=== PATIENT | male | born 1980 | race Caucasian/White ===

== ENCOUNTER 2017-03-22 16:45 | Emergency (ER) | payer MEDICAID ==
[2017-03-22 17:19] VITALS: BP 138/95
[2017-03-22] MEDS ORDERED: methylPREDNISolone Sodium Succinate 125 MG/2 ML SDV IVPUSH ONE (17:27)
[2017-03-22 18:03] LABS: CHLORIDE,CL 99 mmol/L (101-111); SODIUM,NA 136 mmol/L (135-145)
[2017-03-22] MEDS ORDERED: Ketorolac 30 MG/ML SDV IVPUSH ONE (18:35)
--- NOTE | 2017-03-22 18:37 | EDM.PDOC ---
ED HPI GENERAL MEDICAL PROBLEM - General Chief Complaint: Respiratory Problem Stated Complaint: [id number] SOB BREAKING OUT OF ANTIBIOTIC Time Seen by Provider: 03/22/17 18:20 Source of Information: Reports: Patient History Limitations: Reports: No Limitations - History of Present Illness INITIAL COMMENTS - FREE TEXT/NARRATIVE: Patient presents to the ER with complaints of shortness of breath and rash. He reports that he was started on Bactrim for what was believed to be staph infection to his left upper extremity. He reports that he has taken two doses of the antibiotic. He originally woke up this morning around 0500 with a headache and rash to his chest. He took some Tylenol and went back to bed. The remainder of the day he was working with his father and thought he was feeling better. Around 1600 he reports that the rash had worsened and he began feeling short of breath and somewhat disoriented, prompting his ER visit. He felt disoriented because he was "looking for a water bottle that was in his hand already." He denies any tongue swelling. He complains of a throbbing headache upon presentation to the ER, has experienced relief throughout the day with Tylenol. Onset: Today Onset Date: 03/22/17 Onset Time: 05:00 Location: Reports: Chest (hives to anterior and posterior chest, feels short of breath) Improves with: Reports: Medication Associated Symptoms: Reports: Headaches Treatments NURSE OFFICE: Reports: Acetaminophen Chest Pain Score (Numeric/FACES): 5 - Related Data Allergies Allergy/AdvReac Type Severity Reaction Status Date / Time amoxicillin Allergy Hives Verified 03/22/17 17:28 erythromycin base Allergy Hives Verified 03/22/17 17:28 Penicillins Allergy Hives Verified 03/22/17 17:28 Sulfa (Sulfonamide Allergy Hives Verified 03/22/17 17:12 Antibiotics) Home Meds: Home Meds Dicyclomine [Bentyl] 10 mg PO BID 03/22/17 [History] Escitalopram [Lexapro] 20 mg PO DAILY 03/22/17 [History] Lisinopril [Zestril] 5 mg PO DAILY 03/22/17 [History] QUEtiapine Fumarate [Seroquel Xr] 50 mg PO DAILY 03/22/17 [History] atoMOXetine HCl [Strattera] 60 mg PO DAILY 03/22/17 [History] buPROPion [Wellbutrin XL] 300 mg PO DAILY 03/22/17 [History] busPIRone [Buspar] 10 mg PO BID 03/22/17 [History] guanFACINE 10 mg PO DAILY 03/22/17 [History] Past Medical History HEENT History: Reports: Impaired Vision Cardiovascular History: Reports: Hypertension Gastrointestinal History: Reports: Other (See Below) Other Gastrointestinal History: ulcerative colitis Psychiatric History: Reports: ADHD, Anxiety, Bipolar Social & Family History - Family History Family Medical History: Noncontributory - Tobacco Use Smoking Status *Q: Never Smoker - Caffeine Use Caffeine Use: Reports: Coffee - Recreational Drug Use Recreational Drug Use: No ED ROS GENERAL - Review of Systems Review Of Systems: ROS reveals no pertinent complaints other than HPI. ED EXAM, GENERAL - Physical Exam Exam: See Below Exam Limited By: No Limitations General Appearance: Alert, WD/WN, No Apparent Distress Eye Exam: Bilateral Eye: Normal Fundi, Normal Inspection, PERRL Nose: Normal Inspection, Normal Mucosa, No Blood Throat/Mouth: Normal Inspection, Normal Lips, Normal Teeth, Normal Gums, Normal Oropharynx, Normal Voice, No Airway Compromise Head: Atraumatic, Normocephalic Neck: Normal Inspection, Supple, Non-Tender, Full Range of Motion Respiratory/Chest: No Respiratory Distress, Lungs Clear, Normal Breath Sounds, No Accessory Muscle Use, Chest Non-Tender Cardiovascular: Normal Peripheral Pulses, Regular Rate, Rhythm, No Edema, No Gallop, No JVD, No Murmur, No Rub GI/Abdominal: Normal Bowel Sounds, Soft, Non-Tender, No Organomegaly, No Distention, No Abnormal Bruit, No Mass (Male) Exam: Deferred Rectal (Males) Exam: Deferred Back Exam: Normal Inspection, Full Range of Motion, NT Extremities: Normal Inspection, Normal Range of Motion, Non-Tender, Normal Capillary Refill, No Pedal Edema Neurological: Alert, Oriented, CN II-XII Intact, Normal Cognition, Normal Gait, Normal Reflexes, No Motor/Sensory Deficits Psychiatric: Normal Affect, Normal Mood Skin Exam: Rash (hives and erythema to upper anterior and posterior chest) Lymphatic: No Adenopathy Course - Vital Signs Last Recorded V/S: Last Vital Signs Temp 37.3 C 03/22/17 17:17 Pulse 100 03/22/17 17:17 Resp 20 03/22/17 17:17 BP 138/95 H 03/22/17 17:17 Pulse Ox 100 03/22/17 17:17 - Orders/Labs/Meds Labs: Laboratory Tests 03/22/17 03/22/17 Range/Units 17:38 17:38 WBC 14.0 H (5.0-10.0) 10^3/uL RBC 4.70 (4.6-6.2) 10^6/uL Hgb 14.9 (14.0-18.0) g/dL Hct 44.0 (40.0-54.0) % MCV 93.6 (80-100) fL MCH 31.7 (27.0-34.0) pg MCHC 33.9 (33.0-35.0) g/dL Plt Count 199 (150-450) 10^3/uL Neut % (Auto) 90.0 H (42.2-75.2) % Lymph % (Auto) 2.4 L (20.5-50.1) % [place] % (Auto) 6.0 (2-8) % Eos % (Auto) 1.5 (1.0-3.0) % Baso % (Auto) 0.1 (0.0-1.0) % Sodium 136 (135-145) mmol/L Potassium 4.6 (3.6-5.0) mmol/L Chloride 99 L (101-111) mmol/L Carbon Dioxide 27.0 (21.0-31.0) mmol/L Anion Gap 14.6 BUN 17 (7-18) mg/dL Creatinine 1.0 (0.6-1.3) mg/dL Est Cr Clr Drug Dosing 112.09 mL/min Estimated GFR (MDRD) > 60 BUN/Creatinine Ratio 17.00 Glucose 97 (74-105) mg/dL Calcium 9.0 (8.4-10.2) mg/dl Total Bilirubin 0.6 (0.2-1.0) mg/dL AST 41 (10-42) IU/L ALT 26 (10-60) IU/L Alkaline Phosphatase 63 (42-121) IU/L Total Protein 6.6 L (6.7-8.2) g/dl Albumin 4.0 (3.2-5.5) g/dl Globulin 2.6 Albumin/Globulin Ratio 1.54 Meds: Medications Discontinued Medications Generic Name Dose Route Start Last Admin Trade Name Haylie PRN Reason Stop Dose Admin Methylprednisolone Sodium Succinate 125 mg 03/22/17 17:27 03/22/17 17:33 Solu-Medrol IVPUSH 03/22/17 17:28 125 mg ONETIME ONE Administration Departure - Departure Time of Disposition: 19:01 Disposition: Home, Self-Care 01 Condition: Fair Clinical Impression: Drug-induced hypersensitivity reaction Qualifiers: Encounter type: initial encounter Qualified Code(s): T78.40XA - Allergy, unspecified, initial encounter - Discharge Information Instructions: Shortness of Breath, [id number] Care Plan Goals: Labs discussed with patient and his parents. Solumedrol 125 mg IV administered during ER visit. 30 mg IV Toradol administered with headache relief. At time of discharge, patient reports breathing is much easier and he is no longer short of breath, nor does he have a headache. Instructed patient to stop taking Bactrim and follow up with his PCP tomorrow to further address cystic lesion to left upper extremity and leukocytosis. Instructed patient to take Benadryl 25 mg Q 6 hrs PRN rash and push fluids.
== END 2017-03-22 19:08 | disposition home or self-care (01) ==
LOC: DL.ED 16:45
DX: L50.0 Allergic urticaria (principal); T37.0X5A Adverse effect of sulfonamides, initial encounter; H54.7 Unspecified visual loss; I10 Essential (primary) hypertension; F41.9 Anxiety disorder, unspecified; F31.9 Bipolar disorder, unspecified; Z88.1 Allergy status to other antibiotic agents; Z88.2 Allergy status to sulfonamides; Z79.899 Other long term (current) drug therapy
CPT/HCPCS: 36415; 80053; 85025; 96374; 96375; 99284; J1885; J2930

== ENCOUNTER 2017-05-25 22:35 | Emergency (ER) | payer MEDICAID ==
[2017-05-25] MEDS ORDERED: Clindamycin HCl 150 MG Cap PO ONE (22:36)
[2017-05-25 22:43] VITALS: BP 150/91
[2017-05-25] MEDS ORDERED: Lidocaine 1% 30 ML SDV INJECT ONE (22:57)
--- NOTE | 2017-05-25 22:57 | EDM.PDOC ---
ED HPI GENERAL MEDICAL PROBLEM - General Chief Complaint: Skin Complaint Stated Complaint: HAND [id number] Time Seen by Provider: 05/25/17 22:54 Source of Information: Reports: Patient History Limitations: Reports: No Limitations - History of Present Illness INITIAL COMMENTS - FREE TEXT/NARRATIVE: C/o pain and redness to left arm and wrist. Patient reports he had "sweat pimple ton left wrist few days ago that he poked with needle today low grade temp and pus coming from wrist area. Also bumped left anticubital area while at word with board. , yellow scab to area that he also tried poking with needle. Hx MRSA in past. Duration: Day(s): Left Hand Pain Score (Numeric/FACES): 9 - Related Data Allergies Allergy/AdvReac Type Severity Reaction Status Date / Time amoxicillin Allergy Hives Verified 05/25/17 22:44 erythromycin base Allergy Hives Verified 05/25/17 22:44 Penicillins Allergy Hives Verified 05/25/17 22:44 Sulfa (Sulfonamide Allergy Hives Verified 05/25/17 22:44 Antibiotics) Home Meds: Home Meds Dicyclomine [Bentyl] 10 mg PO BID 03/22/17 [History] Escitalopram [Lexapro] 20 mg PO DAILY 03/22/17 [History] Lisinopril [Zestril] 5 mg PO DAILY 03/22/17 [History] QUEtiapine Fumarate [Seroquel Xr] 50 mg PO DAILY 03/22/17 [History] atoMOXetine HCl [Strattera] 60 mg PO DAILY 03/22/17 [History] buPROPion [Wellbutrin XL] 300 mg PO DAILY 03/22/17 [History] busPIRone [Buspar] 10 mg PO BID 03/22/17 [History] guanFACINE 10 mg PO DAILY 03/22/17 [History] Mesalamine [Mesalamine] 1 tab PO DAILY 05/25/17 [History] Past Medical History HEENT History: Reports: Impaired Vision Cardiovascular History: Reports: Hypertension Gastrointestinal History: Reports: Other (See Below) Other Gastrointestinal History: ulcerative colitis Psychiatric History: Reports: ADHD, Anxiety, Bipolar Social & Family History - Family History Family Medical History: Noncontributory - Tobacco Use Smoking Status *Q: Never Smoker - Caffeine Use Caffeine Use: Reports: Coffee - Recreational Drug Use Recreational Drug Use: No ED ROS GENERAL - Review of Systems Review Of Systems: See Below Constitutional: Reports: Fever HEENT: Reports: No Symptoms Respiratory: Reports: No Symptoms Cardiovascular: Reports: No Symptoms GI/Abdominal: Reports: No Symptoms Musculoskeletal: Reports: Arm Pain Skin: Reports: Erythema, Wound Neurological: Reports: No Symptoms Psychiatric: Reports: Anxiety ED EXAM, SKIN/RASH Exam: See Below Exam Limited By: No Limitations General Appearance: Alert, Anxious, Mild Distress Eye Exam: Bilateral Eye: EOMI Ears: Normal External Exam Nose: Normal Inspection Throat/Mouth: Normal Inspection, Normal Voice Head: Atraumatic, Normocephalic Respiratory/Chest: No Respiratory Distress Cardiovascular: Normal Peripheral Pulses, Regular Rate, Rhythm Extremities: Increased Warmth, Redness. No: Normal Inspection Neurological: Alert, Oriented, Inattentive Psychiatric: Anxious Skin: Warm, Erythema, Increased Warmth (left wrist) Location, Skin: Upper Extremity, Left (5x4cm red raised area with central blistering with scant yellow drainage, erythema streaking inner forearm to 2nd lesion medial anticubital space 3 cm circular firm area with 5mm central yellow brown crust) Associated features: Warmth, Tenderness, Swelling, Induration, Inflammation, Weeping ED SKIN PROCEDURES - I&D Skin Prep: Chlorhexidine (Hibiciens), Providone-Iodine (Betadine) Local Anesthesia: Lidocaine: 1% Plain Local Anesthetic Volume: 2cc Area Incised With: 15 Blade Drainage: Purulent (small amount left wrist,) Probed to Break Up Loculations: No Sterile Dressing: Other (telfa, kerlix) Complications: No Course - Vital Signs Last Recorded V/S: Last Vital Signs Temp 99.0 F 05/25/17 22:42 Pulse 113 H 05/25/17 22:42 Resp 18 05/25/17 22:42 BP 150/91 H 05/25/17 22:42 Pulse Ox 99 05/25/17 22:42 - Orders/Labs/Meds Orders: Active Orders 24 hr Category Date Time Status CULTURE BLOOD [BC] Stat Lab 05/25/17 22:56 Received CULTURE WOUND [RM] Stat Lab 05/25/17 22:48 Received Labs: Laboratory Tests 05/25/17 05/25/17 05/25/17 Range/Units 22:56 22:56 22:56 WBC 12.7 H (5.0-10.0) 10^3/uL RBC 4.21 L (4.6-6.2) 10^6/uL Hgb 13.8 L (14.0-18.0) g/dL Hct 39.8 L (40.0-54.0) % MCV 94.5 (80-100) fL MCH 32.8 (27.0-34.0) pg MCHC 34.7 (33.0-35.0) g/dL Plt Count 295 D (150-450) 10^3/uL Neut % (Auto) 78.6 H (42.2-75.2) % Lymph % (Auto) 11.1 L (20.5-50.1) % [place] % (Auto) 9.4 H (2-8) % Eos % (Auto) 0.7 L (1.0-3.0) % Baso % (Auto) 0.2 (0.0-1.0) % Sodium 137 (135-145) mmol/L Potassium 3.6 (3.6-5.0) mmol/L Chloride 102 (101-111) mmol/L Carbon Dioxide 26.0 (21.0-31.0) mmol/L Anion Gap 12.6 BUN 15 (7-18) mg/dL Creatinine 1.0 (0.6-1.3) mg/dL Est Cr Clr Drug Dosing 108.77 mL/min Estimated GFR (MDRD) > 60 BUN/Creatinine Ratio 15.00 Glucose 116 H (74-105) mg/dL Lactic Acid 0.7 (0.5-2.2) mmol/L Calcium 9.1 (8.4-10.2) mg/dl Total Bilirubin 0.6 (0.2-1.0) mg/dL AST 40 (10-42) IU/L ALT 32 (10-60) IU/L Alkaline Phosphatase 64 (42-121) IU/L Total Protein 6.9 (6.7-8.2) g/dl Albumin 3.9 (3.2-5.5) g/dl Globulin 3.0 Albumin/Globulin Ratio 1.30 Meds: Medications Discontinued Medications Generic Name Dose Route Start Last Admin Trade Name Freq PRN Reason Stop Dose Admin Bacitracin 1 dose 05/25/17 23:44 05/26/17 00:09 Bacitracin Oint 1 Gm TOP 05/25/17 23:45 1 dose ONETIME ONE Administration Clindamycin HCl Confirm 05/26/17 00:47 05/26/17 00:58 Cleocin Administered 05/26/17 00:48 Not Given Dose 1,200 mg .ROUTE .STK-MED ONE Diphenhydramine HCl 25 mg 05/25/17 23:00 05/25/17 23:24 Benadryl PO 05/25/17 23:01 25 mg ONETIME ONE Administration Vancomycin HCl 1 gm/ Sodium 250 mls @ 167 mls/hr 05/25/17 22:59 05/25/17 23: 24 Chloride IV 05/26/17 00:28 167 mls/hr ONETIME ONE Administration Lidocaine HCl 30 ml 05/25/17 22:57 05/25/17 23:25 Xylocaine-Mpf 1% INJECT 05/25/17 22:58 30 ml ONETIME ONE Administration Departure - Departure Time of Disposition: 01:00 Disposition: Home, Self-Care 01 Condition: Fair Clinical Impression: Cellulitis Qualifiers: Site of cellulitis: extremity Site of cellulitis of extremity: upper extremity Laterality: left Qualified Code(s): L03.114 - Cellulitis of left upper limb - Discharge Information Instructions: Cellulitis, Adult Referrals: Katherine Welsh PA-C [Primary Care Provider] - Forms: ED Department Discharge Additional Instructions: warm pack to left wrist to forearm 4 times daily 15 minutes Recheck in clinic on Tuesday, sooner if symptoms worsen, fever, chills body aches Clindaymycin 300mg 4 times daily for one week tylenol or ibuprofen for discomfort Keep area covered, change dressing at least twice daily - My Orders Last 24 Hours: My Active Orders 05/25/17 22:48 CULTURE WOUND [RM] Stat 05/25/17 22:56 CULTURE BLOOD [BC] Stat - Assessment/Plan Last 24 Hours: My Active Orders 05/25/17 22:48 CULTURE WOUND [RM] Stat 05/25/17 22:56 CULTURE BLOOD [BC] Stat
[2017-05-25] MEDS ORDERED: diphenhydrAMINE 25 MG Tab PO ONE (23:00)
[2017-05-25 23:23] LABS: CHLORIDE,CL 102 mmol/L (101-111); SODIUM,NA 137 mmol/L (135-145)
[2017-05-25] MEDS ORDERED: Bacitracin Oint 1 GM U/D Packet TOP ONE (23:44)
[2017-05-26] MEDS ORDERED: Clindamycin HCl 150 MG Cap ONE (00:47)
== END 2017-05-26 01:03 | disposition home or self-care (01) ==
LOC: DL.ED 22:35
DX: L03.114 Cellulitis of left upper limb (principal); I10 Essential (primary) hypertension; F31.9 Bipolar disorder, unspecified; Z79.899 Other long term (current) drug therapy; Z88.0 Allergy status to penicillin; Z88.1 Allergy status to other antibiotic agents; Z88.2 Allergy status to sulfonamides
CPT/HCPCS: 10060; 36415; 80053; 83605; 85025; 87040; 87070; 87077; 87186; 96365; 96366; 99283; A9270; J3370; J7050

== ENCOUNTER 2017-08-21 21:24 | Emergency (ER) | payer BC, MEDICAID ==
[2017-08-21 21:37] VITALS: BP 147/103
[2017-08-21] MEDS ORDERED: Ibuprofen 600 MG Tab PO ONE (21:50)
--- NOTE | 2017-08-21 22:19 | EDM.PDOC ---
ED HPI GENERAL MEDICAL PROBLEM - General Chief Complaint: Skin Complaint Stated Complaint: INFECTION IN FOOT [id number] Time Seen by Provider: 08/21/17 22:09 Source of Information: Reports: Patient History Limitations: Reports: No Limitations - History of Present Illness INITIAL COMMENTS - FREE TEXT/NARRATIVE: ED with c/o sore on bottom of right foot. Has hx of MRSA and has had cellulitis in past . No fevers Patient admits to taking insulin syringe and poking at it and got some drainage. Right Feet Pain Score (Numeric/FACES): 10 - Related Data Allergies Allergy/AdvReac Type Severity Reaction Status Date / Time amoxicillin Allergy Hives Verified 08/21/17 21:30 erythromycin base Allergy Hives Verified 08/21/17 21:30 Penicillins Allergy Hives Verified 08/21/17 21:30 Sulfa (Sulfonamide Allergy Hives Verified 08/21/17 21:30 Antibiotics) Home Meds: Home Meds Dicyclomine [Bentyl] 10 mg PO BID 03/22/17 [History] Escitalopram [Lexapro] 20 mg PO DAILY 03/22/17 [History] Lisinopril [Zestril] 5 mg PO DAILY 03/22/17 [History] QUEtiapine Fumarate [Seroquel Xr] 50 mg PO DAILY 03/22/17 [History] atoMOXetine HCl [Strattera] 60 mg PO DAILY 03/22/17 [History] buPROPion [Wellbutrin XL] 300 mg PO DAILY 03/22/17 [History] busPIRone [Buspar] 10 mg PO BID 03/22/17 [History] guanFACINE 10 mg PO DAILY 03/22/17 [History] Mesalamine [Mesalamine] 1 tab PO DAILY 05/25/17 [History] Past Medical History HEENT History: Reports: Impaired Vision Cardiovascular History: Reports: Hypertension Gastrointestinal History: Reports: Other (See Below) Other Gastrointestinal History: ulcerative colitis Psychiatric History: Reports: ADHD, Anxiety, Bipolar Dermatologic History: Reports: Cellulitis - Infectious Disease History Infectious Disease History: Reports: MRSA - Past Surgical History GI Surgical History: Reports: Colonoscopy Social & Family History - Family History Family Medical History: Noncontributory - Tobacco Use Smoking Status *Q: Current Every Day Smoker Years of Tobacco use: 6 Packs/Tins Daily: 0.2 Used Tobacco, but Quit: No Second Hand Smoke Exposure: Yes - Caffeine Use Caffeine Use: Reports: None - Recreational Drug Use Recreational Drug Use: No ED ROS GENERAL - Review of Systems Review Of Systems: ROS reveals no pertinent complaints other than HPI. ED EXAM, SKIN/RASH Exam: See Below Exam Limited By: No Limitations General Appearance: Alert, No Apparent Distress, Anxious Eye Exam: Bilateral Eye: EOMI Nose: Normal Inspection Throat/Mouth: Normal Inspection Neck: Full Range of Motion Cardiovascular: Normal Peripheral Pulses Extremities: No: Pedal Edema Neurological: Alert, Oriented, Normal Cognition Psychiatric: Anxious Skin: Warm, Dry, Wound/Incision (dime size red area with central raised , calloused, punctate center, scant thick white drainage mid plantar fore foot right) ED SKIN PROCEDURES - I&D Site: right forefoot mid plantar surface Skin Prep: Providone-Iodine (Betadine) Area Incised With: 11 Blade Drainage: Purulent (scant) Sterile Dressinx4(s) Course - Vital Signs Last Recorded V/S: Last Vital Signs Temp 98.0 F 08/21/17 21:35 Pulse 109 H 08/21/17 21:35 Resp 16 08/21/17 21:35 BP 147/103 H 08/21/17 21:35 Pulse Ox 100 08/21/17 21:35 - Orders/Labs/Meds Meds: Medications Discontinued Medications Generic Name Dose Route Start Last Admin Trade Name Haylie PRN Reason Stop Dose Admin Ibuprofen 600 mg 08/21/17 21:50 08/21/17 21:55 Motrin PO 08/21/17 21:51 600 mg ONETIME ONE Administration Departure - Departure Time of Disposition: 22:25 Disposition: Home, Self-Care 01 Condition: Good Clinical Impression: Abscess - Discharge Information Instructions: Skin Abscess, [id number] Additional Instructions: Warm soak to foot 3 times daily clinic follow up 2 days, sooner if redness of foot minimal weight bearing dress with antibiotic ointment gauze and radha doxycyclin 100mg twice daily for 10 days
[2017-08-21] MEDS ORDERED: Doxycycline 100 MG Cap PO ONE (22:28)
== END 2017-08-21 22:35 | disposition home or self-care (01) ==
LOC: DL.ED 21:24
DX: L02.611 Cutaneous abscess of right foot (principal); I10 Essential (primary) hypertension; F17.210 Nicotine dependence, cigarettes, uncomplicated; Z88.1 Allergy status to other antibiotic agents; Z88.2 Allergy status to sulfonamides; Z88.0 Allergy status to penicillin; Z79.899 Other long term (current) drug therapy
CPT/HCPCS: 10060; 87070; 87077; 87186; 99283; A9270

== ENCOUNTER 2017-10-27 23:35 | Emergency (ER) | payer BC, MEDICAID ==
[2017-10-27] MEDS ORDERED: Ondansetron 4 MG Tab.DIS PO ONE (23:36)
[2017-10-28 00:04] VITALS: BP 125/79
--- NOTE | 2017-10-28 00:46 | EDM.PDOC ---
ED HPI GENERAL MEDICAL PROBLEM - General Chief Complaint: Gastrointestinal Problem Stated Complaint: CHEST PRESSURE, PUKING AND YELLOW [id number] Time Seen by Provider: 10/28/17 00:30 Source of Information: Reports: Patient History Limitations: Reports: No Limitations - History of Present Illness INITIAL COMMENTS - FREE TEXT/NARRATIVE: ED with family c/o nausea and vomiting. Has felt tired past month, stomach discomfort kind of burning epigastric, briefly resolves wit h food then worse. Vomiting yellow liquid 7 times with retching. Large amount of food consumed per report including spicy tajik. Hx of ulcerative colitis. No report of bloody emesis or blood in stool. Bilateral Chest Pain Score (Numeric/FACES): 6 - Related Data Allergies Allergy/AdvReac Type Severity Reaction Status Date / Time amoxicillin Allergy Hives Verified 10/28/17 00:08 erythromycin base Allergy Hives Verified 10/28/17 00:08 Penicillins Allergy Hives Verified 10/28/17 00:08 Sulfa (Sulfonamide Allergy Hives Verified 10/28/17 00:08 Antibiotics) Home Meds: Home Meds Dicyclomine [Bentyl] 10 mg PO BID 03/22/17 [History] Escitalopram [Lexapro] 20 mg PO DAILY 03/22/17 [History] Lisinopril [Zestril] 5 mg PO DAILY 03/22/17 [History] buPROPion [Wellbutrin XL] 300 mg PO DAILY 03/22/17 [History] busPIRone [Buspar] 10 mg PO BID 03/22/17 [History] Mesalamine 1 tab PO DAILY 05/25/17 [History] guanFACINE 2 mg PO DAILY 10/28/17 [History] Past Medical History HEENT History: Reports: Impaired Vision Cardiovascular History: Reports: Hypertension Gastrointestinal History: Reports: Other (See Below) Other Gastrointestinal History: ulcerative colitis Psychiatric History: Reports: ADHD, Anxiety, Bipolar Dermatologic History: Reports: Cellulitis - Infectious Disease History Infectious Disease History: Reports: MRSA - Past Surgical History GI Surgical History: Reports: Colonoscopy Social & Family History - Family History Family Medical History: Noncontributory - Tobacco Use Smoking Status *Q: Current Every Day Smoker Years of Tobacco use: 10 Packs/Tins Daily: 0.5 Used Tobacco, but Quit: No Second Hand Smoke Exposure: Yes - Caffeine Use Caffeine Use: Reports: None - Recreational Drug Use Recreational Drug Use: No ED ROS GENERAL - Review of Systems Review Of Systems: ROS reveals no pertinent complaints other than HPI. ED EXAM, GI/ABD - Physical Exam Exam: See Below Exam Limited By: No Limitations General Appearance: Alert, Anxious, Mild Distress. No: Active Emesis Eyes: Bilateral: EOMI Ears: Normal External Exam Throat/Mouth: Normal Inspection, Normal Lips Head: Atraumatic, Normocephalic Neck: Normal Inspection Respiratory/Chest: No Respiratory Distress, Lungs Clear, Normal Breath Sounds Cardiovascular: Normal Peripheral Pulses, Regular Rate, Rhythm GI/Abdominal Exam: Normal Bowel Sounds, Soft, Non-Tender Back Exam: Normal Inspection, Full Range of Motion Extremities: Normal Inspection, Normal Range of Motion Neurological: Alert, Oriented, CN II-XII Intact, Normal Cognition Psychiatric: Anxious, Flat Affect Skin Exam: Warm, Dry, Intact, Normal Color Course - Vital Signs Last Recorded V/S: Last Vital Signs Temp 99 F 10/28/17 00:00 Pulse 69 10/28/17 00:00 Resp 18 10/28/17 00:00 BP 125/79 10/28/17 00:00 Pulse Ox 99 10/28/17 00:00 - Orders/Labs/Meds Orders: Active Orders 24 hr Category Date Time Status EKG 12 Lead [EKG Documentation Completion] [RC] STAT Care 10/28/17 00:33 Active Labs: Laboratory Tests 10/28/17 10/28/17 Range/Units 00:45 00:45 WBC 7.8 (5.0-10.0) 10^3/uL RBC 4.43 L (4.6-6.2) 10^6/uL Hgb 14.1 (14.0-18.0) g/dL Hct 40.8 (40.0-54.0) % MCV 92.1 (80-100) fL MCH 31.8 (27.0-34.0) pg MCHC 34.6 (33.0-35.0) g/dL Plt Count 236 (150-450) 10^3/uL Neut % (Auto) 63.5 (42.2-75.2) % Lymph % (Auto) 19.4 L (20.5-50.1) % [place] % (Auto) 14.4 H (2-8) % Eos % (Auto) 2.6 (1.0-3.0) % Baso % (Auto) 0.1 (0.0-1.0) % Sodium 134 L (135-145) mmol/L Potassium 3.4 L (3.6-5.0) mmol/L Chloride 101 (101-111) mmol/L Carbon Dioxide 26.0 (21.0-31.0) mmol/L Anion Gap 10.4 BUN 17 (7-18) mg/dL Creatinine 1.0 (0.6-1.3) mg/dL Est Cr Clr Drug Dosing 107.72 mL/min Estimated GFR (MDRD) > 60 BUN/Creatinine Ratio 17.00 Glucose 102 (74-105) mg/dL Calcium 8.9 (8.4-10.2) mg/dl Total Bilirubin 0.4 (0.2-1.0) mg/dL AST 47 H (10-42) IU/L ALT 30 (10-60) IU/L Alkaline Phosphatase 57 (42-121) IU/L Troponin I < 0.02 (0.00-0.02) ng/ml Total Protein 6.4 L (6.7-8.2) g/dl Albumin 3.8 (3.2-5.5) g/dl Globulin 2.6 Albumin/Globulin Ratio 1.46 Amylase 96 (28-100) U/L Lipase 44 (22-51) U/L Meds: Medications Discontinued Medications Generic Name Dose Route Start Last Admin Trade Name Freq PRN Reason Stop Dose Admin Famotidine 20 mg 10/28/17 00:49 10/28/17 00:57 Pepcid IVPUSH 10/28/17 00:50 20 mg ONETIME ONE Administration Sodium Chloride 1,000 mls @ 999 mls/hr 10/28/17 00:55 10/28/17 00:57 Normal Saline IV 10/28/17 01:55 999 mls/hr .BOLUS ONE Administration Ondansetron HCl Confirm 10/28/17 01:57 10/28/17 02:31 Zofran Odt Administered 10/28/17 01:58 Not Given Dose 8 mg .ROUTE .STK-MED ONE Departure - Departure Time of Disposition: 01:51 Disposition: Home, Self-Care 01 Condition: Good Clinical Impression: Peptic gastritis, Vomiting - Discharge Information Instructions: Nausea and Vomiting, Adult, [id number] Referrals: Joaquín Klein, [employer] [facility] [Primary Care Provider] - Forms: ED Department Discharge Additional Instructions: clinic follow up next week bland light diet, small measl more frequenlty, avoid spicy, greasy or caffienated beverages omeprazole 20mg daily on empty stomach zofran ODT 4mg every 6 hours as needed for nausea - My Orders Last 24 Hours: My Active Orders 10/28/17 00:33 EKG 12 Lead [EKG Documentation Completion] [RC] STAT - Assessment/Plan Last 24 Hours: My Active Orders 10/28/17 00:33 EKG 12 Lead [EKG Documentation Completion] [RC] STAT
[2017-10-28] MEDS ORDERED: Sodium Chloride 0.9% 1,000 ML IV ONE (00:55)
[2017-10-28 01:13] LABS: CHLORIDE,CL 101 mmol/L (101-111); SODIUM,NA 134 mmol/L (135-145)
[2017-10-28] MEDS ORDERED: Ondansetron 4 MG Tab.DIS ONE (01:57)
--- NOTE | 2017-11-01 07:38 | EKG ---
10/28/2017- JO ANN CUTLER - FINDINGS: Twelve-lead EKG shows normal sinus rhythm with no significant ST elevation or ST depression noted. Nonspecific T-wave changes noted on lead V2 and V4. [facility] /[id number]
== END 2017-10-28 02:05 | disposition home or self-care (01) ==
LOC: DL.ED 23:35
DX: K29.70 Gastritis, unspecified, without bleeding (principal); I10 Essential (primary) hypertension; F17.210 Nicotine dependence, cigarettes, uncomplicated; Z88.1 Allergy status to other antibiotic agents; Z88.0 Allergy status to penicillin; Z88.2 Allergy status to sulfonamides; Z79.899 Other long term (current) drug therapy
CPT/HCPCS: 36415; 80053; 82150; 83690; 84484; 85025; 93005; 96361; 96374; 99285; A9270-GY; J3490; J7030

== ENCOUNTER 2017-10-28 05:07 | Observation (INO) | payer BC, MEDICAID ==
[2017-10-28] MEDS ORDERED: Promethazine 25 MG/ML SDV IM ONE (05:28)
[2017-10-28] MEDS ORDERED: Sodium Chloride 0.9% 1,000 ML IV SCH (05:30)
[2017-10-28] MEDS ORDERED: Iopamidol 612 MG/ML 100 ML Bottle IVPUSH ONE (05:31)
[2017-10-28] MEDS ORDERED: GI Cocktail Oral Solution 30 ML PO ONE (05:32)
--- NOTE | 2017-10-28 06:28 | EDM.PDOC ---
ED HPI GENERAL MEDICAL PROBLEM - General Chief Complaint: Gastrointestinal Problem Stated Complaint: BURNING IN CHEST AND THROWING UP [id number] Time Seen by Provider: 10/28/17 05:30 Source of Information: Reports: Patient History Limitations: Reports: No Limitations - History of Present Illness INITIAL COMMENTS - FREE TEXT/NARRATIVE: ED with c/o nausea, vomiting and buring in stomach and lower chest.Patient seen previously tonight for same. He noted he was hungry when left ED so went home and ate bee, cream peas cottage cheese and grape juice. Then vomited a whole bunch of times. Mid-Sternal Chest Pain Score (Numeric/FACES): 9 - Related Data Allergies Allergy/AdvReac Type Severity Reaction Status Date / Time amoxicillin Allergy Hives Verified 10/28/17 00:08 erythromycin base Allergy Hives Verified 10/28/17 00:08 Penicillins Allergy Hives Verified 10/28/17 00:08 Sulfa (Sulfonamide Allergy Hives Verified 10/28/17 00:08 Antibiotics) Home Meds: Home Meds Dicyclomine [Bentyl] 10 mg PO BID 03/22/17 [History] Escitalopram [Lexapro] 20 mg PO DAILY 03/22/17 [History] Lisinopril [Zestril] 5 mg PO DAILY 03/22/17 [History] buPROPion [Wellbutrin XL] 300 mg PO DAILY 03/22/17 [History] busPIRone [Buspar] 10 mg PO BID 03/22/17 [History] Mesalamine 1 tab PO DAILY 05/25/17 [History] guanFACINE 2 mg PO DAILY 10/28/17 [History] Past Medical History HEENT History: Reports: Impaired Vision Cardiovascular History: Reports: Hypertension Gastrointestinal History: Reports: Other (See Below) Other Gastrointestinal History: ulcerative colitis Psychiatric History: Reports: ADHD, Anxiety, Bipolar Dermatologic History: Reports: Cellulitis - Infectious Disease History Infectious Disease History: Reports: MRSA - Past Surgical History GI Surgical History: Reports: Colonoscopy Social & Family History - Family History Family Medical History: Noncontributory - Tobacco Use Smoking Status *Q: Current Every Day Smoker Years of Tobacco use: 10 Packs/Tins Daily: 0.5 Used Tobacco, but Quit: No Second Hand Smoke Exposure: Yes - Caffeine Use Caffeine Use: Reports: None - Recreational Drug Use Recreational Drug Use: Yes Drug Use in Last 12 Months: Yes Recreational Drug Type: Reports: Marijuana/Hashish Recreational Drug Use Frequency: Socially ED ROS GENERAL - Review of Systems Review Of Systems: ROS reveals no pertinent complaints other than HPI. ED EXAM, GI/ABD - Physical Exam Exam: See Below Exam Limited By: No Limitations General Appearance: Alert, Anxious Eyes: Bilateral: EOMI Ears: Normal External Exam Nose: Normal Inspection Throat/Mouth: Normal Inspection, Normal Lips Head: Atraumatic, Normocephalic Neck: Normal Inspection, Non-Tender, Full Range of Motion, Limited Range of Motion, Lymphadenopathy (L), Lymphadenopathy (R) Respiratory/Chest: No Respiratory Distress, Normal Breath Sounds, Chest Non- Tender Cardiovascular: Normal Peripheral Pulses, Regular Rate, Rhythm GI/Abdominal Exam: Normal Bowel Sounds, Soft Rectal (Males) Exam: Normal Exam, Normal Rectal Tone, Bloody Stool, Rectal Fissure Back Exam: Normal Inspection, Full Range of Motion Neurological: Alert, Oriented Psychiatric: Anxious Skin Exam: Warm, Dry, Intact, Normal Color Course - Vital Signs Last Recorded V/S: Last Vital Signs Temp 97.9 F 10/28/17 05:11 Pulse 67 10/28/17 05:30 Resp 18 10/28/17 05:30 BP 136/83 10/28/17 05:30 Pulse Ox 99 10/28/17 05:30 - Orders/Labs/Meds Orders: Active Orders 24 hr Category Date Time Status Pantoprazole 40 MG in Sodium Chloride 0.9% @ 20 MLS/HR( Med 10/28/17 07:15 Ordered 100ml) Pantoprazole [ProTONIX IV] 40 mg Sodium Chloride 0.9% [Normal Saline] 100 ml IV .CONTINUOS Sodium Chloride 0.9% [Normal Saline] 1,000 ml Med 10/28/17 05:30 Active IV ASDIRECTED Medication Orders Sodium Chloride (Normal Saline) 1,000 mls @ 999 mls/hr IV ASDIRECTED MILTON Last Admin: 10/28/17 05:44 Dose: 999 mls/hr Meds: Medications Generic Name Dose Route Start Last Admin Trade Name Freq PRN Reason Stop Dose Admin Sodium Chloride 1,000 mls @ 999 mls/hr 10/28/17 05:30 10/28/17 05:44 Normal Saline IV 999 mls/hr ASDIRECTED MILTON Administration Discontinued Medications Generic Name Dose Route Start Last Admin Trade Name Haylie PRN Reason Stop Dose Admin Al Hydroxide/Mg Hydroxide 30 ml 10/28/17 05:32 10/28/17 06:20 Gi Cocktail PO 10/28/17 05:33 30 ml ONETIME ONE Administration Iopamidol 100 ml 10/28/17 05:31 10/28/17 06:11 Isovue-300 (61%) IVPUSH 10/28/17 05:32 75 ml ONETIME ONE Administration Promethazine HCl 25 mg 10/28/17 05:28 10/28/17 05:38 Phenergan IM 10/28/17 05:29 25 mg ONETIME ONE Administration - Radiology Interpretation Free Text/Narrative:: CT gastroenteritis with dilated small bowel - Re-Assessments/Exams Free Text/Narrative Re-Assessment/Exam: 10/28/17 07:14 Dr Perez accepting of patient for further management, vomiting, gastroenteritis, dialted small bowel on CT. Pat currently NPO and resting comfortably. Departure - Departure Time of Disposition: 07:16 Disposition: Admitted As Inpatient 66 Condition: Good Clinical Impression: Vomiting, Gastroenteritis - Discharge Information Forms: ED Department Discharge - My Orders Last 24 Hours: My Active Orders 10/28/17 05:30 Sodium Chloride 0.9% [Normal Saline] 1,000 ml IV ASDIRECTED 10/28/17 07:15 Pantoprazole 40 MG in Sodium Chloride 0.9% @ 20 MLS/HR(100ml) Pantoprazole [ ProTONIX IV] 40 mg Sodium Chloride 0.9% [Normal Saline] 100 ml IV .CONTINUOS - Assessment/Plan Last 24 Hours: My Active Orders 10/28/17 05:30 Sodium Chloride 0.9% [Normal Saline] 1,000 ml IV ASDIRECTED 10/28/17 07:15 Pantoprazole 40 MG in Sodium Chloride 0.9% @ 20 MLS/HR(100ml) Pantoprazole [ ProTONIX IV] 40 mg Sodium Chloride 0.9% [Normal Saline] 100 ml IV .CONTINUOS
[2017-10-28] MEDS ORDERED: Pantoprazole 40 MG in Sodium Chloride 0.9% 100 ML IV SCH (07:15)
[2017-10-28] MEDS ORDERED: Acetaminophen 325 MG Tab PO PRN (09:17)
[2017-10-28] MEDS ORDERED: Ondansetron 4 MG/2 ML SDV IVPUSH PRN (09:17)
[2017-10-28] MEDS ORDERED: Morphine 2 MG/ML Syringe IVPUSH PRN (09:17)
[2017-10-28] MEDS ORDERED: Dicyclomine 10 MG Cap PO PRN (09:20)
[2017-10-28] MEDS: Escitalopram 10 MG Tab PO SCH (09:46)
[2017-10-28] MEDS: buPROPion 150 MG Tab.ER PO SCH (09:46)
[2017-10-28] MEDS: Sodium Chloride 0.9% 1,000 ML IV SCH ×2 (09:47→17:54)
[2017-10-28] MEDS: busPIRone 15 MG Tab PO SCH ×2 (09:47→20:52)
[2017-10-28] MEDS: Pantoprazole 40 MG Vial IVPUSH SCH ×2 (09:47→20:52)
[2017-10-28 10:36] LABS: CHLORIDE,CL 107 mmol/L (101-111); SODIUM,NA 136 mmol/L (135-145)
[2017-10-28] MEDS: GUANFACINE 2 MG PO SCH (13:28)
[2017-10-28] MEDS: MESALAMINE 1.2 GM PO SCH (13:34)
--- NOTE | 2017-10-28 15:54 | HP ---
CHIEF COMPLAINT: Nausea, vomiting, and diarrhea. HISTORY OF PRESENT ILLNESS: Mr. Jonas Fletcher is a 37-year-old male with medical history significant for anxiety, depression, hypertension, gastroesophageal reflux disease, bipolar disorder, substance abuse in the past, ulcerative colitis, and history of MRSA in the past, presented to the ER with complaints of having nausea, vomiting, and diarrhea. The patient was initially treated with IV fluids and sent home, but the patient came back to the ER with more nausea and vomiting, so requiring admission to the hospital. At this time, the patient claims that he has been having this nausea, vomiting, and diarrhea since yesterday which has been progressively getting worse. He had at least 15 episodes of vomiting and 15 episodes of diarrhea. The vomiting was bilious-stained. No blood seen in the vomitus. No blood seen in the diarrhea; it was loose and watery in nature. The patient and his girlfriend had some dinner at [facility] prior to onset of these symptoms. His girlfriend is healthy. No other family member has these episodes. He also complains of having chills with this episode. He denied any chest pain but complains of epigastric pain which is burning in nature, 3 to 4/10 in intensity, aggravated on eating and drinking, relieved with pain medication, nonradiating, and associated with nausea and vomiting. Denies any cough with sputum in the last few days. The patient denied any history of chest pains on exertion. No history of dyspnea on exertion. No history of orthopnea or paroxysmal nocturnal dyspnea. The patient denied any history of hematemesis, hematochezia, or melenic stools. Normal bowel and bladder habits, otherwise. REVIEW OF SYSTEMS: A complete review of systems including skin, ear, nose, and throat; cardiovascular system; respiratory system; gastrointestinal system; genitourinary system; hematology; oncology; neurology; allergy; immunology; constitutional were all evaluated and were negative except for the above-said notes. PAST MEDICAL HISTORY: Significant for hypertension, gastroesophageal reflux disease, bipolar disorder, depression, anxiety, ulcerative colitis, and history of substance abuse in the past. PAST SURGICAL HISTORY: Significant for colonoscopies in the past. FAMILY HISTORY: Significant for ulcerative colitis, diabetes, hypertension, chronic obstructive pulmonary disease, heart attack. Stroke in his father along with rheumatoid arthritis. Mother with thyroid disease. Sister with ADHD. Heart disease in his brother. Ulcerative colitis in his paternal aunt. SOCIAL HISTORY: The patient smokes around 6 to 8 cigarettes a day. Occasional alcohol intake. ALLERGIC HISTORY: The patient noted to have allergies to sulfa, amoxicillin, erythromycin, and penicillin. MEDICATIONS: Home medications include: 1. Lisinopril 10 mg daily. 2. Wellbutrin 300 mg daily. 3. BuSpar 10 mg twice a day. 4. Dicyclomine 10 mg daily. 5. Lexapro 20 mg nightly. 6. Seroquel 25 mg nightly. PHYSICAL EXAMINATION: Vital Signs: Temperature of 97.7, pulse of 50, blood pressure of 99/48, respiratory rate of 18, and saturating at 99% on room air. General Appearance: The patient is well oriented to time, place, and person. Follows commands spontaneously. Cardiovascular System: S1 and S2 heard with normal intensity. No gallops. Respiratory System: Clear to auscultation bilaterally. No wheeze. No crepitations. Abdomen: Soft. Bowel sounds positive. No tenderness. No rigidity. No guarding. No rebound tenderness. Extremities: No edema in the bilateral lower extremities. Neurology: No gross focal neurological deficit. LABORATORY DATA: No labs were ordered. We will order for a CBC, CMP, and lipase at this time. We will also order for stool for culture. ASSESSMENT: 1. Acute gastroenteritis. 2. Severe dehydration. 3. Hypotension with volume loss. 4. History of ulcerative colitis. 5. History of anxiety and depression. 6. Gastroesophageal reflux disease. PLAN: 1. Acute gastroenteritis. The patient presents with nausea, vomiting, and diarrhea, at least 15 episodes of each, but no blood was seen in the vomitus or the diarrhea. The patient will be referred to observation status. We will have him on IV fluids. We will have him on IV Protonix. We will obtain stool for culture to make sure there is no infectious cause and keep him hydrated and maintain euvolemic status. 2. Hypotension. The patient noted to have low blood pressure. This is from severe volume loss. We will keep him hydrated with IV fluids. Hold his antihypertensive medications. Resume them once he is more stable. 3. History of anxiety, depression, and bipolar disorder. The patient has been on BuSpar and Wellbutrin. Continue the same. He remains stable for now. 4. Ulcerative colitis. The patient takes Bentyl as needed and also on mesalamine. We will continue the same. 5. DVT prophylaxis. We will have him on Lovenox for DVT prophylaxis. 6. Code status. The patient wants to be full code. 7. Discussed with family members at bedside. 8. Discussed with Herminia Lemon PA-C, ER, regarding the plan of care. Reviewed the labs and medications. Reviewed the old charts. [facility] /[id number]
[2017-10-28] MEDS ORDERED: QUEtiapine 25 MG Tab PO SCH (21:00)
[2017-10-29] MEDS: Sodium Chloride 0.9% 1,000 ML IV SCH (01:58)
[2017-10-29] MEDS ORDERED: ATOMOXETINE 60 MG PO SCH (09:00)
[2017-10-29] MEDS ORDERED: Enoxaparin 40 MG/0.4 ML Syringe SUBCUT SCH (09:00)
[2017-10-29] MEDS: Escitalopram 10 MG Tab PO SCH (09:12)
[2017-10-29] MEDS: buPROPion 150 MG Tab.ER PO SCH (09:12)
[2017-10-29] MEDS: Pantoprazole 40 MG Vial IVPUSH SCH (09:12)
[2017-10-29] MEDS: busPIRone 15 MG Tab PO SCH (09:13)
[2017-10-29] MEDS: GUANFACINE 2 MG PO SCH (09:16)
[2017-10-29] MEDS: MESALAMINE 1.2 GM PO SCH (09:17)
[2017-10-29 11:41] VITALS: BP 106/78
--- NOTE | 2017-10-31 09:04 | DISCH ---
DOS: 10/29/2017 ADMITTING DIAGNOSES: 1. Acute gastroenteritis. 2. Severe dehydration. 3. Hypotension with hypovolemia. 4. Some severe dehydration. 5. Gastroesophageal reflux disease. DISCHARGE DIAGNOSES: 1. Acute gastroenteritis, resolved. 2. Gastroesophageal reflux disease. 3. Severe dehydration, resolved with IV fluids. 4. Hypotension, resolved with IV fluids. HISTORY OF PRESENT ILLNESS: Mr. Jonas Fletcher is a 37-year-old male with medical history significant for anxiety, depression, hypertension, gastroesophageal reflux disease, bipolar disorder, and history of ulcerative colitis in the past, was admitted to the hospital with complaints of severe nausea, vomiting, and diarrhea, consistent with acute viral gastroenteritis. The patient was admitted and was treated with Zofran and IV fluids, after which his symptoms got resolved. He continued to have mild epigastric discomfort, is treated with IV Protonix on this admission. We switched him to oral omeprazole at the time of discharge. He is able to tolerate clear liquid diets well. His lipase is within normal limits. His electrolytes were within normal limits. He is discharged home in stable condition. He is advised to follow with his primary care physician in the next 1 week to 2 weeks of time. He was given warning signs of increased abdominal pain, nausea, vomiting, and was advised to come back to the hospital if symptoms persist or gets worsen. He was explained about taking omeprazole for the next 4 weeks and possibly following with a GI doctor, or if symptoms worsen, he might need to undergo an upper endoscopy to rule out any evidence of peptic ulcer disease. He understands the instructions well. He is discharged home in stable condition. DISCHARGE MEDICATIONS: Include: 1. Maalox 10 mL oral every 4 hours as needed for heartburn. 2. Bentyl 10 mg twice a day. 3. Lexapro 20 mg daily. 4. Lisinopril 10 mg daily. 5. Mesalamine 2.4 g daily. 6. Omeprazole 40 mg daily. 7. Zofran 4 mg every 6 hours as needed for nausea and vomiting. 8. Seroquel 25 mg at bedtime. 9. Wellbutrin 300 mg daily. 10.BuSpar 10 mg twice a day. 11.Guaifenesin 2 mg oral daily. PHYSICAL EXAMINATION: On the day of discharge: Vital Signs: Temperature of 98, pulse of 73, blood pressure 106/78, respiratory rate of 20, and saturating at 99% on room air. General Appearance: The patient is well oriented to time, place, and person. Follows commands spontaneously. Cardiovascular System: S1 and S2 heard with normal intensity. No gallops. Respiratory System: Clear to auscultation bilaterally. No wheeze. No crepitations. Abdomen: Soft. Bowel sounds positive. Nontender. No rigidity. No guarding. No rebound tenderness. Extremities: No edema in the bilateral lower extremities. Neurology: No gross focal neurological deficit. CONDITION ON ADMISSION: Poor. CONDITION ON DISCHARGE: Stable. ACTIVITY: As tolerated. DIET: Low fat diet, cardiac healthy diet. FOLLOWUP: Follow up with primary care physician in the next 1 to 2 weeks of time, and follow up with GI clinic as needed. [facility] /[id number]
== END 2017-10-29 13:55 | disposition home or self-care (01) ==
LOC: DL.ED 05:07 → UNDOADMOB 07:17 → DL.MS 07:17 → EEVIPCON 09:17
PROVIDERS: ADMIT Internal Medicine; ATTEND Internal Medicine
DX: K52.9 Noninfective gastroenteritis and colitis, unspecified (principal); E86.0 Dehydration; I95.9 Hypotension, unspecified; F90.9 Attention-deficit hyperactivity disorder, unspecified type; F41.9 Anxiety disorder, unspecified; I10 Essential (primary) hypertension; K21.9 Gastro-esophageal reflux disease without esophagitis; F31.9 Bipolar disorder, unspecified; F17.210 Nicotine dependence, cigarettes, uncomplicated; Z88.2 Allergy status to sulfonamides; Z88.1 Allergy status to other antibiotic agents; Z88.0 Allergy status to penicillin; Z79.899 Other long term (current) drug therapy
CPT/HCPCS: 36415; 74177; 80053; 81001; 83690; 83735; 84100; 85025; 96361; 96365; 96366; 96372; 96374; 96375; 96376; 99285; A9270-GY; C9113; G0378; J1650; J2270; J2550; J7030; J7050; Q9967

== ENCOUNTER 2018-10-26 23:39 | Emergency (ER) | payer BC, MEDICAID, OTHER ==
--- NOTE | 2018-10-27 00:07 | EDM.PDOC ---
ED HPI GENERAL MEDICAL PROBLEM - General Chief Complaint: Laceration Stated Complaint: CUT TO NOSE Time Seen by Provider: 10/27/18 00:02 Source of Information: Reports: Patient History Limitations: Reports: No Limitations - History of Present Illness INITIAL COMMENTS - FREE TEXT/NARRATIVE: doved into shallow cement pool hitting face, now HUERTAS nausea dizzy. Nose Pain Score (Numeric/FACES): 5 - Related Data Allergies Allergy/AdvReac Type Severity Reaction Status Date / Time amoxicillin Allergy Hives Verified 10/28/17 07:39 erythromycin base Allergy Hives Verified 10/28/17 07:39 Penicillins Allergy Hives Verified 10/28/17 07:39 Sulfa (Sulfonamide Allergy Hives Verified 10/28/17 07:39 Antibiotics) Home Meds: Home Meds Dicyclomine [Bentyl] 10 mg PO BID PRN 03/22/17 [History] Escitalopram [Lexapro] 20 mg PO DAILY 03/22/17 [History] Lisinopril [Zestril] 10 mg PO DAILY 03/22/17 [History] buPROPion [Wellbutrin XL] 300 mg PO DAILY 03/22/17 [History] busPIRone [Buspar] 10 mg PO BID 03/22/17 [History] Mesalamine 2.4 g PO DAILY 05/25/17 [History] QUEtiapine [SEROquel] 25 mg PO BEDTIME 10/28/17 [History] guanFACINE 2 mg PO DAILY 10/28/17 [History] Alum Hydrox/Mag Hydrox/Simeth [Maalox Advanced] 10 ml PO Q4H PRN #1 bottle 10/29 [Rx] Omeprazole 40 mg PO DAILY 30 Days #30 cap.sr 10/29/17 [Rx] Ondansetron [Zofran ODT] 4 mg PO Q6H PRN #10 tab.dis 10/29/17 [Rx] Past Medical History HEENT History: Reports: Impaired Vision Cardiovascular History: Reports: Hypertension Gastrointestinal History: Reports: Other (See Below) Other Gastrointestinal History: ulcerative colitis Psychiatric History: Reports: ADHD, Anxiety, Bipolar Dermatologic History: Reports: Cellulitis - Infectious Disease History Infectious Disease History: Reports: MRSA - Past Surgical History GI Surgical History: Reports: Colonoscopy Social & Family History - Family History Family Medical History: Noncontributory - Caffeine Use Caffeine Use: Reports: None ED ROS GENERAL - Review of Systems Review Of Systems: ROS reveals no pertinent complaints other than HPI. ED EXAM, SKIN/RASH Exam: See Below Exam Limited By: No Limitations General Appearance: Alert, WD/WN, Mild Distress, Other (face injury) Eye Exam: Bilateral Eye: PERRL (pupils ER @ 4mm) Ears: Hearing Grossly Normal Nose: Nasal Tenderness, Nasal Swelling, Other (1/4" spfl lac on ridge, no active bleeding) Throat/Mouth: Normal Voice, No Airway Compromise Head: Atraumatic Neck: Non-Tender, Full Range of Motion Respiratory/Chest: No Respiratory Distress Cardiovascular: Regular Rate, Rhythm, No Edema GI/Abdominal: Soft, Non-Tender Neurological: Alert, Oriented, Normal Cognition, Normal Gait, No Motor/Sensory Deficits Psychiatric: Normal Affect, Normal Mood Skin: Warm, Dry, Normal Color Location, Skin: Face Lymphatic: No Adenopathy ED SKIN PROCEDURES - Laceration/Wound Repair Nose Lac/Wound length In cm: 0.5 (nose ridge) Appearance: Superficial, Linear, Clean Skin Prep: Chlorhexidine (Hibiciens) Exploration/Debridement/Repair: Wound Explored, In a Bloodless Field, No Foreign Material Found Closed with: Steri-Strips Sterile Dressing Applied: None Tetanus Status Addressed: Yes Complications: No Course - Vital Signs Last Recorded V/S: Last Vital Signs Temp 36.5 C 10/27/18 00:01 Pulse 81 10/27/18 00:01 Resp 18 10/27/18 00:01 BP 144/62 H 10/27/18 00:01 Pulse Ox 98 10/27/18 00:01 - Orders/Labs/Meds Orders: Active Orders 24 hr Category Date Time Status Head wo Cont [CT] Urgent Exams 10/27/18 00:01 Taken Max Facial Sinus wo Cont [CT] Urgent Exams 10/27/18 00:01 Taken Acetaminophen/HYDROcodone [Holly 325-10 MG] Med 10/27/18 01:19 Once 1 tab PO ONETIME ONE - Re-Assessments/Exams Free Text/Narrative Re-Assessment/Exam: 10/27/18 01:20 result s discussed with pt. Departure - Departure Time of Disposition: 01:20 Disposition: Home, Self-Care 01 Condition: Good Clinical Impression: Closed fracture nose Qualifiers: Encounter type: initial encounter Qualified Code(s): S02.2XXA - Fracture of nasal bones, initial encounter for closed fracture - Discharge Information Instructions: Nasal Fracture, [id number] Forms: ED Department Discharge Additional Instructions: 1) ice to swelling 2) see clinic for ENT REFERRAL 3) recheck as needed - My Orders Last 24 Hours: My Active Orders 10/27/18 00:01 Head wo Cont [CT] Urgent Max Facial Sinus wo Cont [CT] Urgent 10/27/18 01:19 Acetaminophen/HYDROcodone [Holly 325-10 MG] 1 tab PO ONETIME ONE - Assessment/Plan Last 24 Hours: My Active Orders 10/27/18 00:01 Head wo Cont [CT] Urgent Max Facial Sinus wo Cont [CT] Urgent 10/27/18 01:19 Acetaminophen/HYDROcodone [Holly 325-10 MG] 1 tab PO ONETIME ONE
[2018-10-27 00:10] VITALS: BP 144/62; PULSE 81
[2018-10-27] MEDS ORDERED: Acetaminophen/HYDROcodone 325-10 MG Tab PO ONE (01:19)
== END 2018-10-27 01:29 | disposition home or self-care (01) ==
LOC: DL.ED 23:39
DX: S02.2XXA Fracture of nasal bones, initial encounter for closed fracture (principal); I10 Essential (primary) hypertension; F90.9 Attention-deficit hyperactivity disorder, unspecified type; F41.9 Anxiety disorder, unspecified; F31.9 Bipolar disorder, unspecified; W22.8XXA Striking against or struck by other objects, initial encounter; Y93.15 Activity, underwater diving and snorkeling; Z79.899 Other long term (current) drug therapy; Z88.1 Allergy status to other antibiotic agents; Z88.0 Allergy status to penicillin; Z88.2 Allergy status to sulfonamides
CPT/HCPCS: 70450; 70486; 99284; A9270; 12011; 99283

== ENCOUNTER 2019-04-06 12:01 | Emergency (ER) | payer SELFPAY ==
[2019-04-06 13:07] VITALS: BP 135/81; PULSE 74
--- NOTE | 2019-04-06 13:14 | EDM.PDOC ---
ED HPI GENERAL MEDICAL PROBLEM - General Chief Complaint: ENT Problem Stated Complaint: SORE THROAT/HARD TO SWALLOW Time Seen by Provider: 04/06/19 13:14 Source of Information: Reports: Patient, RN, RN Notes Reviewed History Limitations: Reports: No Limitations - History of Present Illness INITIAL COMMENTS - FREE TEXT/NARRATIVE: Pt presents to ER from home by POV with c/o onset of sore throat yesterday. Pt states he has had fever, chills, and a headache as well. Denies cough, N/V/D, abdominal pain, or rash. Pt states his girlfriend had confirmed influenza last week. Onset: Gradual Onset Date: 04/05/19 Duration: Constant Location: Reports: Generalized, Other (Throat) Severity: Moderate Improves with: Reports: None Worsens with: Reports: None Context: Reports: Sick Contact Associated Symptoms: Reports: No Other Symptoms Throat Pain Score (Numeric/FACES): 6 - Related Data Allergies Allergy/AdvReac Type Severity Reaction Status Date / Time amoxicillin Allergy Hives Verified 04/06/19 13:08 erythromycin base Allergy Hives Verified 04/06/19 13:08 Penicillins Allergy Hives Verified 04/06/19 13:08 Sulfa (Sulfonamide Allergy Hives Verified 04/06/19 13:08 Antibiotics) Home Meds: Home Meds Lisinopril [Zestril] 10 mg PO DAILY 03/22/17 [History] busPIRone [Buspar] 10 mg PO BID 03/22/17 [History] Mesalamine 2.4 g PO DAILY 05/25/17 [History] Omeprazole 40 mg PO DAILY 30 Days #30 cap.sr 10/29/17 [Rx] Sertraline HCl [Zoloft] 150 mg PO DAILY 04/06/19 [History] Past Medical History HEENT History: Reports: Impaired Vision Cardiovascular History: Reports: Hypertension Gastrointestinal History: Reports: Other (See Below) Other Gastrointestinal History: ulcerative colitis Psychiatric History: Reports: ADHD, Anxiety, Bipolar Dermatologic History: Reports: Cellulitis - Infectious Disease History Infectious Disease History: Reports: MRSA - Past Surgical History GI Surgical History: Reports: Colonoscopy Social & Family History - Family History Family Medical History: Noncontributory - Caffeine Use Caffeine Use: Reports: None - Living Situation & Occupation Living situation: Reports: with Significant Other ED ROS ENT - Review of Systems Review Of Systems: ROS reveals no pertinent complaints other than HPI. ED EXAM, ENT - Physical Exam Exam: See Below Exam Limited By: No Limitations General Appearance: Alert, WD/WN, No Apparent Distress Eye Exam: Bilateral Eye: Normal Inspection Ears: Normal External Exam, Normal Canal, Hearing Grossly Normal, Normal TMs Nose: No Blood, Nasal Discharge (mild, clear) Mouth/Throat: Normal Lips, Normal Teeth, Pharyngeal Erythema. No: Tonsillar Exudates Neck: Normal Inspection, Supple, Non-Tender, Full Range of Motion Respiratory/Chest: No Respiratory Distress, Lungs Clear, Normal Breath Sounds, No Accessory Muscle Use, Chest Non-Tender Cardiovascular: Regular Rate, Rhythm GI/Abdominal: Normal Bowel Sounds, Soft, Non-Tender, No Organomegaly, No Distention, No Abnormal Bruit, No Mass Back: Normal Inspection Extremities: Normal Inspection, Normal Range of Motion, Non-Tender. No: Joint Swelling Neurological: Alert, Oriented, No Motor/Sensory Deficits Course - Vital Signs Last Recorded V/S: Last Vital Signs Temp 97.9 F 04/06/19 13:05 Pulse 74 04/06/19 13:05 Resp 16 04/06/19 13:05 BP 135/81 04/06/19 13:05 Pulse Ox 99 04/06/19 13:05 - Orders/Labs/Meds Orders: Active Orders 24 hr Category Date Time Status CULTURE STREP A CONFIRMATION [RM] Stat Lab 04/06/19 13:14 Results STREP SCRN A RAPID W CULT CONF [RM] Stat Lab 04/06/19 13:14 Results Labs: Rapid Strep: negative Influenza A/B: negative Departure - Departure Time of Disposition: 14:05 Disposition: Home, Self-Care 01 Condition: Good Clinical Impression: Acute viral pharyngitis - Discharge Information *PRESCRIPTION DRUG MONITORING PROGRAM REVIEWED*: No *COPY OF PRESCRIPTION DRUG MONITORING REPORT IN PATIENT YVETTE: No Instructions: Pharyngitis, [id number], Viral Illness, Adult Forms: ED Department Discharge Additional Instructions: Rx: Prednisone 20mg *Take with a meal. Frequent saltwater gargles until sore throat resolves. Drink plenty of water. Use over the counter Chloreseptic Throat Lynco or Lozenge. Follow up in clinic if not improving in 3 days. - My Orders Last 24 Hours: My Active Orders 04/06/19 13:14 CULTURE STREP A CONFIRMATION [RM] Stat STREP SCRN A RAPID W CULT CONF [RM] Stat - Assessment/Plan Last 24 Hours: My Active Orders 04/06/19 13:14 CULTURE STREP A CONFIRMATION [RM] Stat STREP SCRN A RAPID W CULT CONF [RM] Stat
== END 2019-04-06 14:25 | disposition home or self-care (01) ==
LOC: DL.ED 12:01
DX: J02.8 Acute pharyngitis due to other specified organisms (principal); B97.89 Other viral agents as the cause of diseases classified elsewhere; I10 Essential (primary) hypertension; F41.9 Anxiety disorder, unspecified; Z88.1 Allergy status to other antibiotic agents; Z88.0 Allergy status to penicillin; Z88.2 Allergy status to sulfonamides; Z79.899 Other long term (current) drug therapy
CPT/HCPCS: 87081; 87430; 87804; 99283